=== PATIENT | female | born 1945 | race Hispanic/Latino ===

== ENCOUNTER 2022-05-22 10:00 | Outpatient (RCR) | payer MEDICAID, SELFPAY ==
--- NOTE | 2022-04-09 08:24 | PCPTNOTE ---
The patient treatment was not able to be completed on [04/09/22] due to pt arriving 20 min late for evaluation.
--- NOTE | 2022-04-24 10:37 | PTOPEVAL1 ---
Assessment and note entered by Princess Rehman, PT Evaluation Information Assessment Status Evaluation Diagnosis poor balance Onset Jan 2022 Subjective Information pt and son report: no falls, just started using the walker about 1 month ago; Reported Pain Level Pain Score 0: Self Report Additional Pain Score Comments ankles are swollen, little tight and stiff in legs Assessment PT Clinical Summary Adri has the diagnosis of poor balance. She recently started using a walker and does not go out into the community. And has problems on the steps into her home. She has not had any falls. With the PT evaluation: educated on wheeled walker gait and she is going to obtain wheels for her walker; weakness of R and L ankle with decreased ROM; poor gait pattern; decreased balance with TUG time of 1 minute & 28 seconds, Tinetti 14/28= high risk for falls; 2 minute walking test distance of 50'; Her son was present and interpreted for session. Skilled PT services are indicated to increase LE strength, gait and balance skills, to improve mobility on level surface, stairs and transfer skill, with education for home exercises and gait pattern. Plan of Care Interventions Gait Training,Patient/Caregiver Education, Therapeutic Activities,Therapeutic Exercise PT Services Indicated Yes Treatment Frequency and 2x/wk for 4 weeks Duration These treatments will address the objective and functional deficits as defined above. The patient will be advanced safely and appropriately in order for the patient to progress towards his/her prior level of function. Additional exercises will be introduced and as well as a comprehensive home exercise program upon discharge, if needed, ?to ensure carryover of functional gains achieved in the clinic. This treatment plan has been reviewed and agreement upon by the patient.
--- NOTE | 2022-05-22 10:45 | PTOPDC ---
Assessment and note entered by Princess Rehman, PT Evaluation Information Assessment Status Discharge Diagnosis poor balance Onset Jan 2022 Subjective Information Adri reports: no problems with walking at home, no problems on stairs, no falls; is doing her exercises at home; agrees to d/c PT services; her son interpreted for her today; Reported Pain Level Pain Score Self Report pain L toe/MT joint Assessment PT Clinical Summary Adri has received 7 PT sessions. Compared to the initial evaluation, she has improved in all areas, except Tinetti balance score is the same; 5 reps sit stand transfer time improved from 36 to 28 seconds; 2 minute walk test distance from 50' to 120'; TUG from 1 min & 28 sec to 36 seconds; strength and ROM of both ankles is better; standing LE exercises have increased strength; She has been educated on HEP and is now using a wheeled walker, instead of standard walker. The goals were partially achieved. Discharge PT services, she is to continue with her home exercises and using the wheeled walker for mobility. Plan of Care PT Services Indicated No Discharge PT services
== END 2022-05-22 12:03 | disposition home or self-care (01) ==
LOC: ANHPT 10:00
PROVIDERS: Visit Provider Physician Assistant
DX: R27.8 Other lack of coordination (principal)
CPT/HCPCS: 97110; 97112; 97116; 97161; 97530

== ENCOUNTER 2022-06-29 09:50 | Emergency (ER) | payer MEDICAID, SELFPAY ==
[2022-06-29] VITALS (8 sets, daily range): BP systolic 142–153; BP diastolic 71–83; PULSE 58–75; RESP 14–20; TEMP 36.5–36.6; O2SAT 98–100
--- NOTE | ~2022-06-29 | XR_ITS ---
EXAMINATION: XR chest 2V DATE: 06/29/2022 10:30 INDICATION: Hypertension presenting with weakness and bilateral leg swelling TECHNIQUE: frontal and lateral views of the chest were obtained. COMPARISON: Thoracic spine radiographs dated 12/31/2015 FINDINGS: Artifactual appearance of elevation of the right hemidiaphragm resulting from lordotic positioning. P rimarily linear opacities at the bilateral lower lungs and favor atelectasis over pneumonia. No pleur al effusion or pneumothorax. The cardiomediastinal silhouette is within normal limits for AP techniqu e. Thoracic kyphosis with mild anterior wedging of a few mid and lower thoracic vertebral bodies. Sev ere thoracic spondylosis. IMPRESSION: 1. Primarily linear opacities at the bilateral lower lung zones and favor atelectasis over pneumonia. Reviewed, dictated and finalized at location B. IMPRESSION: 1. Primarily linear opacities at the bilateral lower lung zones and favor atele ctasis over pneumonia.
--- NOTE | 2022-06-29 09:57 | ECG_ITS ---
Measurements Intervals [place] Rate: 74 P: 56 CO: 147 QRS: 22 QRSD: 100 T: 30 QT: 358 QTc: 399 Interpretive Statements SINUS RHYTHM MINIMAL Q WAVES- HIGH LATERAL LEADS BASELINE ARTIFACT- I, II, III, AVR, AVL BORDERLINE ECG NO PREVIOUS ECG AVAILABLE FOR COMPARISON Electronically Signed On 06-29-2022 10:32:49 CDT by Perenll Avila D.O.
[2022-06-29 10:33] LABS: Basophils Absolute Auto 0.1 K/mm3 (0.0-0.1); Basophils Percent Auto 0.8 % (0.2-1.2); Eosinophils Absolute Auto 0.1 K/mm3 (0-0.3); Eosinophils Percent Auto 1.5 % (0-4.4); Hemoglobin 11.6 g/dL (12.0-15.0); Immature Granulocyte Absolute 0.01 K/mm3 (0.00-0.031); Immature Granulocyte Percent A 0.2 % (0-0.5); Lymphocytes Absolute Auto 2.29 K/mm3 (0.9-3.2); Lymphocytes Percent Auto 38.2 % (18.3-44.2); Mean Corpuscular HGB Conc 31.4 g/dl (32-36); Mean Corpuscular Hemoglobin 29.2 pg (26-34); Mean Corpuscular Volume 93.2 fl (80-100); Mean Platelet Volume 9.3 fl (7.4-10.4); Monocytes Absolute Auto 0.5 K/mm3 (0.1-0.6); Monocytes Percent Auto 8.8 % (2.6-8.5); Neutrophils Percent Auto 50.5 % (45.5-73.1); Platelet Count Result 254 k/mm3 (150-375); Red Blood Count 3.97 M/mm3 (4.2-5.4); Red Cell Distribution Width 13.5 % (11.5-14.5)
[2022-06-29 10:40] LABS: Alanine Aminotransferase 27 U/L (6-35); Albumin Level 4.4 g/dL (3.5-5.1); Alkaline Phosphatase 160 U/L (38-126); Anion Gap 5 mmol/L (8-16); Aspartate Amino Transferase 36 U/L (14-36); Bilirubin,Total 0.7 mg/dL (0.2-1.3); Blood Urea Nitrogen 13 mg/dL (7-17); Carbon Dioxide 31 mmol/L (22-30); Chloride 104 mmol/L (98-107); Estimated CRCL calculation 88 ml/min; Estimated Glomerular Filt Rate > 60; Glucose 89 mg/dL (65-110); Potassium 3.8 mmol/L (3.4-5.0); Sodium 140 mmol/L (137-145)
[2022-06-29 10:48] LABS: NT Pro B Type Natriuretic Pept 163 pg/mL (19.9-100)
[2022-06-29 11:27] LABS: Appearance Urine Cloudy (Clear); Bacteria Urine None Seen /hpf; Bilirubin Urine Negative (Negative); Blood Urine Negative (Negative); Color Urine Yellow (Yellow); Glucose Urine UA Negative (Negative); Ketones Urine Negative (Negative); Leukocyte Esterase Ur Trace LEU/UL (Negative); Nitrate Urine Negative (Negative); Non Pathogenic Casts 0-2; Protein Urine Negative (Negative); RBC Urine 0-2 /hpf (0-2); Specific Grav Ur 1.005 (1.001-1.035); Squamous Epithelial Cell Urine None seen /hpf (Few); Urobilinogen Urine 0.2 mg/dL (<2.0); WBC Urine 0-5 /hpf
[2022-06-29 11:47] LABS: Add Urine Microscopic? YES
[2022-06-29] MEDS: FUROSEMIDE INJ 40 MG/4 ML VIAL 10 MG IV PUSH (12:10)
--- NOTE | 2022-06-29 16:13 | ED.WEAKNESS ---
HPI - Weakness General Chief complaint: Weakness Stated complaint: weakness, BLE edema Time Seen by Provider: 06/29/22 10:01 History of Present Illness HPI Narrative: Patient presenting for swelling of bilateral feet to ankles for the last 6 months, she thinks that it started when she was using a tool to did get a tree root out. No chest pain, difficulty breathing, no history of heart problems. She states that overall due to the swelling in her legs it has been harder for her to walk and she feels like picking up her feet can be tiring. Related Data Allergies Allergy/AdvReac Type Severity Reaction Status Date / Time Penicillins Allergy Unknown Verified 12/27/15 20:19 Review of Systems Review of Systems: CONST: No fever. HEENT: No sore throat C/V: No chest pain RESP: No cough GI: No nausea vomiting : No dysuria. M/S: bilateral lower extremity swelling SKIN: No rash. NEURO: [No headache or focal numbness or weakness] PSYCH: [No depression] Exam Narrative: EXAMINATION OF ORGAN SYSTEMS/BODY AREAS: Constitutional: Vital signs per nursing GENERAL:[No acute distress, non-toxic appearing.] HEAD: Normal with no signs of head trauma. EYES: EOMI, conjunctiva normal ENT: Hearing grossly intact LUNGS: Nonlabored breathing. HEART: [Regular rate and rhythm] ABD: [Soft], [nontender to palpation] EXT: Bilateral pedal edema SKIN: [No rashes or lesions.] NEURO: [Alert and oriented x 3. No gross focal sensory or strength deficits.] PSYCH: Normal affect Course Vital Signs Vital signs: Vital Signs Temperature 97.7 F 06/29/22 09:55 Pulse Rate 58 L 06/29/22 09:55 Respiratory Rate 14 06/29/22 09:55 Blood Pressure 142/71 H 06/29/22 09:55 Pulse Oximetry 98 06/29/22 09:55 Oxygen Delivery Room Air 06/29/22 09:55 Temperature 97.8 F 06/29/22 10:07 Pulse Rate 62 06/29/22 11:58 Respiratory Rate 20 06/29/22 11:58 Blood Pressure 153/83 H 06/29/22 10:16 Pulse Oximetry 100 06/29/22 10:11 Oxygen Delivery Room Air 06/29/22 10:11 MDM - Weakness MDM Narrative Medical decision making narrative: 76-year-old female presenting with bilateral pedal edema for the last 6 months, vital signs stable here, on exam she is very well-appearing, nonlabored respirations, she does have bilateral pedal edema, without any pain to lower extremities, differential includes dependent edema, I have low concern for DVT as this is bilateral and she has no pain, and also considered possible new onset CHF however she has no cardiac history or breathing problems. Labs are within acceptable limits, she is given a small dose of Lasix for dependent edema and on reevaluation states that she is feeling better, I did urge her to follow-up with her doctor as an outpatient for further treatment, and to try elevation and compression stockings. Patient agreeable to this plan and her was used to obtain history and physical, as well as to provide discharge instructions and review of findings. Lab Data 06/29/22 10:14 06/29/22 10:14 Labs: Lab Results 06/29/22 06/29/22 06/29/22 Range/Units 10:14 10:14 11:13 WBC 6.0 (4.5-10.0) K/mm3 RBC 3.97 L (4.2-5.4) M/mm3 Hgb 11.6 L (12.0-15.0) g/dL Hct 37.0 (37.0-47.0) % MCV 93.2 (80-100) fl MCH 29.2 (26-34) pg MCHC 31.4 L (32-36) g/dl RDW 13.5 (11.5-14.5) % Plt Count 254 (150-375) k/mm3 MPV 9.3 (7.4-10.4) fl Immature Gran % (Auto) 0.2 (0-0.5) % Neut % (Auto) 50.5 (45.5-73.1) % Lymph % (Auto) 38.2 (18.3-44.2) % [place] % (Auto) 8.8 H (2.6-8.5) % Eos % (Auto) 1.5 (0-4.4) % Baso % (Auto) 0.8 (0.2-1.2) % Lymph # (Auto) 2.29 (0.9-3.2) K/mm3 [place] # (Auto) 0.5 (0.1-0.6) K/mm3 Eos # (Auto) 0.1 (0-0.3) K/mm3 Baso # (Auto) 0.1 (0.0-0.1) K/mm3 Abs Immat Gran (auto) 0.01 (0.00-0.031) K/mm3 Absolute Neuts (auto) 3.0 (1.3-6.7) K/mm3 Absolute Nucleated RBC
== END 2022-06-29 13:12 | disposition home or self-care (01) ==
PROVIDERS: Emergency Provider Emergency Medicine
DX: R60.0 Localized edema (principal); R94.31 Abnormal electrocardiogram [ECG] [EKG]; R91.8 Other nonspecific abnormal finding of lung field
CPT/HCPCS: 36415; 71046; 80053; 81001; 83880; 85025; 93005; 96374; 99284; J1940

== ENCOUNTER 2024-11-28 17:30 | Emergency (ER) | payer BC, SELFPAY ==
--- NOTE | ~2024-11-28 | CT_ITS ---
EXAMINATION: CT brain wo con DATE: 11/28/2024 18:50 INDICATION: Dizziness. TECHNIQUE: Computed tomography (CT) of the head was performed without intravenous contrast. The mA was adjusted according to patient size. Iterative reconstruction technique was employed. The dose-length product was 605.33 mGy-cm. COMPARISON: None FINDINGS: There is no intracranial hemorrhage, acute infarction, or abnormal intracranial mass lesion. The ventricles are normal in size. There are likely changes of ocular lens replacement surgeries. There is mild mucosal thickening in the paranasal sinuses. There is a left otomastoid effusion. IMPRESSION: 1. Normal brain. 2. Left otomastoid effusion. Reviewed, dictated and finalized at location E.
--- NOTE | ~2024-11-28 | XR_ITS ---
Examination: XR chest 2V Clinical History: crackles Comparison: None Technique: PA and Lateral Findings: Heart size enlarged. Mild streaky bibasilar opacities. No pleural effusion or pneumothorax. No acute bony abnormality. Osteopenia. IMPRESSION: 1. Mild bibasilar atelectasis and/or airspace disease. Reviewed, dictated and finalized at location R.
[2024-11-28 18:24] VITALS: BP 170/70; PULSE 66; RESP 16; TEMP 36.8; O2SAT 99
--- NOTE | 2024-11-28 18:31 | ECG_ITS ---
Test Date: 2024-11-28 18:36:01 Measurements Intervals [place] Rate: 60 P: 55 NH: 156 QRS: 19 QRSD: 103 T: 40 QT: 387 QTc: 387 Interpretive Statements SINUS RHYTHM No previous ECG available for comparison Electronically Signed On 11-28-2024 19:36:46 CDT by Marcus Echevarria M.D.
--- NOTE | 2024-11-28 18:40 | ED_ITS ---
HPI - Dizziness General Chief Complaint: Dizziness <Shefali Walker APRN - Last Filed: 11/28/24 18:42> Stated Complaint: dizzy x days, anxious <Shefali Walker APRN - Last Filed: 11/28/24 18:42> Time Seen by Provider: 11/28/24 18:40 <Shefali Walker APRN - Last Filed: 11/28/24 18:42> Focused HPI: Patient is a 78-year-old non-Guyanese speaking female who presents to the ER with complaints of dizziness and nervousness. She reports her symptoms worsen when she wakes up in the morning. Patient denies any recent falls, recent fevers, recent cough. She reports she takes an aspirin every day denies any other pertinent medical history. Patient reports she lost her twin brother approximately 2 months ago and has been sad ever since. GENERAL: Well-appearing, well-nourished, and in no acute distress. HEAD: Normocephalic, atraumatic. CHEST: Clear to auscultation. ?No respiratory distress. HEART: Regular rate and rhythm.? NEURO: ?Alert and oriented x3. Patient screened in triage and initial orders placed.? ?Additional care and disposition to be based upon?diagnostic testing and treatment. <Shefali Walker APRN - Last Filed: 11/28/24 18:42> History of Present Illness HPI Narrative: Agree with the HPI above <Avery Ortega MD - Last Filed: 11/29/24 07:23> Related Data Allergies/Adverse Reactions: Allergies Allergy/AdvReac Type Severity Reaction Status Date / Time Penicillins Allergy Severe Rash Verified 11/28/24 18:23 <Shefali Walker APRN - Last Filed: 11/28/24 18:42> Review of Systems 2 Review of Systems: as reviewed above in the HPI <Avery Ortega MD - Last Filed: 11/29/24 07:23> Exam 2 Narrative: GENERAL: [Well-appearing, well-nourished, and in no acute distress.] HEAD: [Normocephalic, atraumatic.] EYES: [PERRLA and EOMI.] ENT: Left tympanic membrane with bulging and a drop of blood in the external auditory with some mild macerated tissue consistent with otitis externa. No tenderness over the mastoid bone, no trismus. Contralateral TM normal. Full range of motion of the jaw. No lymphadenopathy in neck or any overlying skin changes or proptosis of the ear. NECK: Supple. CHEST: [Clear to auscultation. No respiratory distress.] HEART: [Regular rate and rhythm]. No murmur heard. [Normal peripheral pulses.] ABDOMEN: [Soft, nondistended], [nontender], [No rigidity or guarding] EXTREMITIES: Normal range of motion. [No edema.] SKIN: Warm, dry, no rash. NEURO: [No focal deficits]. Alert and oriented [x3.] PSYCH: [Normal mood and affect.] <Avery Ortega MD - Last Filed: 11/29/24 07:23> Course Vital Signs Vital signs: Vital Signs Temperature 36.8 C 11/28/24 18:24 Pulse Rate 66 11/28/24 18:24 Respiratory Rate 16 11/28/24 18:24 Blood Pressure 170/70 H 11/28/24 18:24 Pulse Oximetry 99 11/28/24 18:24 Oxygen Delivery Room Air 11/28/24 18:24 Temperature 36.8 C 11/28/24 18:24 Pulse Rate 62 11/28/24 23:32 Respiratory Rate 19 11/28/24 23:32 Blood Pressure 136/63 11/28/24 23:32 Pulse Oximetry 96 11/28/24 23:32 Oxygen Delivery Room Air 11/28/24 18:24 <Shefali Walker APRN - Last Filed: 11/28/24 18:42> Vital Signs Temperature 36.8 C 11/28/24 18:24 Pulse Rate 66 11/28/24 18:24 Respiratory Rate 16 11/28/24 18:24 Blood Pressure 170/70 H 11/28/24 18:24 Pulse Oximetry 99 11/28/24 18:24 Oxygen Delivery Room Air 11/28/24 18:24 Temperature 36.8 C 11/28/24 18:24 Pulse Rate 62 11/28/24 23:32 Respiratory Rate 19 11/28/24 23:32 Blood Pressure 136/63 11/28/24 23:32 Pulse Oximetry 96 11/28/24 23:32 Oxygen Delivery Room Air 11/28/24 18:24 <Avery Ortega MD - Last Filed: 11/29/24 07:23> MDM - Dizziness MDM Narrative Medical decision making narrative: Patient is a 78-year-old non-Guyanese speaking female who presents to the ER with complaints of dizziness and nervousness. She reports her symptoms worsen when she wakes up in the morning. Patient denies any recent falls, recent fevers, recent cough. She reports she takes an aspirin every day denies any other pertinent medical history. Patient reports she lost her twin brother approximately 2 months ago and has been sad ever since. Left tympanic membrane with bulging and a drop of blood in the external auditory with some mild macerated tissue consistent with otitis externa. No tenderness over the mastoid bone, no trismus. Contralateral TM normal. Full range of motion of the jaw. No lymphadenopathy in neck or any overlying skin changes or proptosis of the ear. Went and re-evaluated the patient, English speaking translation was used for assistance. Patient describes room spinning sensations with positional changes specially worse after she lays down for prolonged period of time. Has only been going on for last 2 days. States she has remote history of any ear injury in the left side in childhood but no recent ear aches or drainage. She does endorse cleaning her ears externally but no insertion or cotton swab use. Mildly hypertensive in triage but normotensive without any interventions on reassessment and placing her in the room. Likely component of anxiety. No tachycardia, fever, hypoxemia otherwise normal blood pressure. Symptoms consistent with vertigo and source likely from her otitis evident on examination. Workup ordered in triage including head CT, EKG and basic laboratory studies given her age and risk factors. Patient given Cipro ear drops and meclizine p.o.. No leukocytosis or anemia. Electrolytes are normal. Normal glucose and LFTs. Urinalysis has signs of urinary tract infection but patient is denying any urinary complaints. Chest x-ray shows bibasilar atelectasis. No respiratory complaints she has clear breath sounds. CT of head shows normal brain and left aldo mastoid effusion consistent with physical exam findings. No signs or symptoms of mastoiditis. No fever or altered mental status. Normal EKG. Discussed treatment plan and findings with the patient family. Safe for discharge home with a combination of antibiotics both oral and otic as well as meclizine as needed for symptoms. Given return precautions and follow-up instructions with PCP. <Avery Ortega MD - Last Filed: 11/29/24 07:23> Medical Records Attestation: I reviewed the patient's medical records. <Avery Ortega MD - Last Filed: 11/29/24 07:23> Lab Data Attestation: I reviewed the patient's lab results. <Avery Ortega MD - Last Filed: 11/29/24 07:23> Result diagrams: 11/28/24 18:40 11/28/24 18:40 <Shefali Walker APRN - Last Filed: 11/28/24 18:42> Labs: Lab Results 11/28/24 11/28/24 Range/Units 18:40 22:31 WBC 6.6 (4.5-10.0) K/mm3 RBC 4.19 L (4.2-5.4) M/mm3 Hgb 12.7 (12.0-15.0) g/dL Hct 39.4 (37.0-47.0) % MCV 94.0 (80-100) fl MCH 30.3 (26-34) pg MCHC 32.2 (32-36) g/dl RDW 13.3 (11.5-14.5) % Plt Count 224 (150-375) k/mm3 MPV 9.2 (7.4-10.4) fl Immature Gran % (Auto) 0.2 (0-0.5) % Neut % (Auto) 52.1 (45.5-73.1) % Lymph % (Auto) 36.0 (18.3-44.2) % [place] % (Auto) 8.9 H (2.6-8.5) % Eos % (Auto) 2.0 (0-4.4) % Baso % (Auto) 0.8 (0.2-1.2) % Lymph # (Auto) 2.36 (0.9-3.2) K/mm3 [place] # (Auto) 0.6 (0.1-0.6) K/mm3 Eos # (Auto) 0.1 (0-0.3) K/mm3 Baso # (Auto) 0.1 (0.0-0.1) K/mm3 Abs Immat Gran (auto) 0.01 (0.00-0.031) K/mm3 Absolute Neuts (auto) 3.4 (1.3-6.7) K/mm3 Absolute Nucleated RBC 0.000 (0.0-0.012) K/mm3 Nucleated RBC % 0.0 (0.0-0.2) % Sodium 139 (137-145) mmol/L Potassium 3.9 (3.4-5.0) mmol/L Chloride 105 (98-107) mmol/L Carbon Dioxide 26 (22-30) mmol/L Anion Gap 8 (4-12) mmol/L BUN 17 (7-17) mg/dL Creatinine 0.72 (0.7-1.0) mg/dL Estim Creat Clear Calc 57 ml/min Estimated GFR > 60 (59 - ) Glucose 117 H (65-110) mg/dL Calcium 9.2 (8.4-10.2) mg/dL Total Bilirubin 0.3 (0.2-1.3) mg/dL AST 30 (14-36) U/L ALT 23 (6-35) U/L Alkaline Phosphatase 115 (38-126) U/L Total Protein 7.6 (6.3-8.2) g/dL Albumin 4.5 (3.5-5.1) g/dL Urine Color Yellow (Yellow) Urine Appearance Clear (Clear) Urine pH 5.5 (5.0-9.0) Ur Specific [place] 1.010 (1.001-1.035) Urine Protein Negative (Negative) mg/dL Urine Glucose (UA) Negative (Negative) mg/dL Urine Ketones Negative (Negative) mg/dL Ur Blood (Man) Trace (Negative) Urine Nitrate Positive H (Negative) Urine Bilirubin Negative (Negative) Urine Urobilinogen 0.2 (<2.0) mg/dL Leukocyte Esterase Rfl Trace H (Negative) ARISTEO/UL Urine RBC 0-2 (0-2) /hpf Urine WBC 6-10 H (0-3) /hpf Ur Squamous Epith Cells None seen (Few) /hpf Urine Bacteria 4+ H /hpf Urine Casts 0-2 <Shefali L. [place], STARS SPECIALIST - Last Filed: 11/28/24 18:42> Lab Results 11/28/24 11/28/24 Range/Units 18:40 22:31 WBC 6.6 (4.5-10.0) K/mm3 RBC 4.19 L (4.2-5.4) M/mm3 Hgb 12.7 (12.0-15.0) g/dL Hct 39.4 (37.0-47.0) % MCV 94.0 (80-100) fl MCH 30.3 (26-34) pg MCHC 32.2 (32-36) g/dl RDW 13.3 (11.5-14.5) % Plt Count 224 (150-375) k/mm3 MPV 9.2 (7.4-10.4) fl Immature Gran % (Auto) 0.2 (0-0.5) % Neut % (Auto) 52.1 (45.5-73.1) % Lymph % (Auto) 36.0 (18.3-44.2) % [place] % (Auto) 8.9 H (2.6-8.5) % Eos % (Auto) 2.0 (0-4.4) % Baso % (Auto) 0.8 (0.2-1.2) % Lymph # (Auto) 2.36 (0.9-3.2) K/mm3 [place] # (Auto) 0.6 (0.1-0.6) K/mm3 Eos # (Auto) 0.1 (0-0.3) K/mm3 Baso # (Auto) 0.1 (0.0-0.1) K/mm3 Abs Immat Gran (auto) 0.01 (0.00-0.031) K/mm3 Absolute Neuts (auto) 3.4 (1.3-6.7) K/mm3 Absolute Nucleated RBC 0.000 (0.0-0.012) K/mm3 Nucleated RBC % 0.0 (0.0-0.2) % Sodium 139 (137-145) mmol/L Potassium 3.9 (3.4-5.0) mmol/L Chloride 105 (98-107) mmol/L Carbon Dioxide 26 (22-30) mmol/L Anion Gap 8 (4-12) mmol/L BUN 17 (7-17) mg/dL Creatinine 0.72 (0.7-1.0) mg/dL Estim Creat Clear Calc 57 ml/min Estimated GFR > 60 (59 - ) Glucose 117 H (65-110) mg/dL Calcium 9.2 (8.4-10.2) mg/dL Total Bilirubin 0.3 (0.2-1.3) mg/dL AST 30 (14-36) U/L ALT 23 (6-35) U/L Alkaline Phosphatase 115 (38-126) U/L Total Protein 7.6 (6.3-8.2) g/dL Albumin 4.5 (3.5-5.1) g/dL Urine Color Yellow (Yellow) Urine Appearance Clear (Clear) Urine pH 5.5 (5.0-9.0) Ur Specific [place] 1.010 (1.001-1.035) Urine Protein Negative (Negative) mg/dL Urine Glucose (UA) Negative (Negative) mg/dL Urine Ketones Negative (Negative) mg/dL Ur Blood (Man) Trace (Negative) Urine Nitrate Positive H (Negative) Urine Bilirubin Negative (Negative) Urine Urobilinogen 0.2 (<2.0) mg/dL Leukocyte Esterase Rfl Trace H (Negative) ARISTEO/UL Urine RBC 0-2 (0-2) /hpf Urine WBC 6-10 H (0-3) /hpf Ur Squamous Epith Cells None seen (Few) /hpf Urine Bacteria 4+ H /hpf Urine Casts 0-2 <Avery Ortega MD - Last Filed: 11/29/24 07:23> Imaging Data Attestation: I personally reviewed and interpreted this imaging study as follows: < Avery Ortega MD - Last Filed: 11/29/24 07:23> My impression: Impressions Head CT 11/28/24 18:50 IMPRESSION: 1. Normal brain. 2. Left otomastoid effusion. Chest X-Ray 11/28/24 19:00 IMPRESSION: 1. Mild bibasilar atelectasis and/or airspace disease. <Avery Ortega MD - Last Filed: 11/29/24 07:23> Discharge Plan Discharge Clinical Impression: Otitis externa of left ear, Benign paroxysmal positional vertigo, UTI (urinary tract infection) <Shefali Walker APRN - Last Filed: 11/28/24 18:42> Patient Disposition: Home <Shefali Walker APRN - Last Filed: 11/28/24 18:42> Condition: Stable <Shefali Walker APRN - Last Filed: 11/28/24 18:42> Instructions: Antibiotic Form, Swimmer's Ear (ED), Vertigo (ED), Benign Paroxysmal Positional Vertigo (ED), Urinary Tract Infection in Older Adults (ED) <Shefali Walker APRN - Last Filed: 11/28/24 18:42> Additional Instructions: You have evidence of an inner ear infection on the left side which is likely the source of your vertigo and dizziness sensations. You also have a very mild urinary tract infection but this is asymptomatic. Will give you a course of antibiotics both with ear drops and oral antibiotics and as needed meclizine which is a anti vertigo medication. Follow-up with your regular doctor, return with any new or worsening symptoms or emergent concerns. <Shefali Walker APRN - Last Filed: 11/28/24 18:42> Patient Language: Guyanese <Shefali Walker APRN - Last Filed: 11/28/24 18:42> Prescriptions: New ciprofloxacin-dexamethasone 0.3-0.1 % drops,suspension 4 drp LEFT EAR Q12H 7 Days Qty: 7.5 0RF meclizine 25 mg tablet 25 mg PO TID PRN (Reason: dizziness) 10 Days Qty: 30 0RF cephalexin 500 mg capsule 500 mg PO Q12H 5 Days Qty: 10 0RF <Shefali Walker APRN - Last Filed: 11/28/24 18:42> Follow-up/Referrals: PHYSICIAN,[employer] [Primary Care Provider, Internal Medicine] <Shefali Walker APRN - Last Filed: 11/28/24 18:42> Time of Disposition: 23:17 <Shefali Walker APRN - Last Filed: 11/28/24 18:42> 23:17 <Avery Ortega MD - Last Filed: 11/29/24 07:23>
[2024-11-28 18:46] LABS: Hematocrit 39.4 % (37.0-47.0); Hemoglobin 12.7 g/dL (12.0-15.0); Immature Granulocyte Percent A 0.2 % (0-0.5); Lymphocytes Absolute Auto 2.36 K/mm3 (0.9-3.2); Mean Corpuscular HGB Conc 32.2 g/dl (32-36); Mean Corpuscular Hemoglobin 30.3 pg (26-34); Mean Corpuscular Volume 94.0 fl (80-100); Nucleated Red Blood Cells Absolute Auto 0.000 K/mm3 (0.0-0.012); Nucleated Red Blood Cells Perc 0.0 % (0.0-0.2); Platelet Count Result 224 k/mm3 (150-375); Red Blood Count 4.19 M/mm3 (4.2-5.4); White Blood Count 6.6 K/mm3 (4.5-10.0)
[2024-11-28 19:00] LABS: Alanine Aminotransferase 23 U/L (6-35); Albumin Level 4.5 g/dL (3.5-5.1); Alkaline Phosphatase 115 U/L (38-126); Anion Gap 8 mmol/L (4-12); Aspartate Amino Transferase 30 U/L (14-36); Bilirubin,Total 0.3 mg/dL (0.2-1.3); Blood Urea Nitrogen 17 mg/dL (7-17); Calcium 9.2 mg/dL (8.4-10.2); Carbon Dioxide 26 mmol/L (22-30); Chloride 105 mmol/L (98-107); Estimated CRCL calculation 57 ml/min; Estimated Glomerular Filt Rate > 60; Glucose 117 mg/dL (65-110); Potassium 3.9 mmol/L (3.4-5.0); Sodium 139 mmol/L (137-145); Total Protein 7.6 g/dL (6.3-8.2)
[2024-11-28 21:45] VITALS: BP 107/80; PULSE 69; RESP 20; O2SAT 95
[2024-11-28 21:55] VITALS: PULSE 68
[2024-11-28 22:49] LABS: Add Urine Microscopic? YES; Appearance Urine Clear (Clear); Glucose Urine UA Negative (Negative); Leukocyte Esterase Ur Trace LEU/UL (Negative); Nitrate Urine Positive (Negative); Non Pathogenic Casts 0-2; Specific Grav Ur 1.010 (1.001-1.035)
[2024-11-28 23:03] VITALS: BP 136/63; PULSE 65; RESP 18; O2SAT 94
[2024-11-28] MEDS: MECLIZINE HCL 25 MG TABLET PO (23:14)
[2024-11-28] MEDS: CIPROFLOXACIN HC OTIC 10 ML 3 DROP LEFT EAR (23:14)
[2024-11-28 23:32] VITALS: BP 136/63; PULSE 62; RESP 19; O2SAT 96
== END 2024-11-28 23:33 | disposition home or self-care (01) ==
PROVIDERS: Registered Nurse; Emergency Provider Student in an Organized Health Care Education/Training Program
DX: H60.92 Unspecified otitis externa, left ear (principal); H81.10 Benign paroxysmal vertigo, unspecified ear; N39.0 Urinary tract infection, site not specified
CPT/HCPCS: 36415; 70450; 71046; 80053; 81001; 85025; 87086; 87186; 93005; 99284; A9270